=== PATIENT | male | born 1980 | race African-American/Black ===

== ENCOUNTER 2017-04-17 17:58 | Emergency (ER) | payer BC ==
[2017-04-17 18:12] VITALS: BP 143/87
[2017-04-17] MEDS ORDERED: Acetaminophen TAB* 325 MG PO ONE (18:17)
--- NOTE | 2017-04-17 18:51 | UC ---
Alma Dong Emily, scribed for Aidee Turner MD on 04/17/17 at 1849 . HPI Febrile Illness - HPI Summary HPI Summary: This patient is a 36 year old M presenting to urgent care with a chief complaint of a fever that began yesterday. The patient rates the pain 8/10 in severity Patient reports chills, myalgia, joint pain, nasal drainage, sore throat, cough, and frontal headache. Patient denies rash, dysuria, and hematuria. Pt has taken 2 doses of Motrin with improvement. 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 Patients medication reviewed this visit. - History of Current Complaint Chief Complaint: UCRespiratory Time Seen by Provider: 04/17/17 18:35 Hx Obtained From: Patient Onset/Duration: Started Days Ago, Still Present Timing: Constant Initial Severity: Severe Current Severity: Severe Pain Intensity: 8 Pain Scale Used: 0-10 Numeric Aggravating Factors: Nothing Alleviating Factors: Nothing Associated Signs and Symptoms: Chills, Headache, Myalgia, SOB, Sore Throat - Allergy/Home Medications Allergies/Adverse Reactions: Allergies Allergy/AdvReac Type Severity Reaction Status Date / Time No Known Allergies Allergy Verified 04/17/17 18:12 PMH/Surg Hx/FS Hx/Imm Hx Previously Healthy: Yes Other Respiratory History: Negative Other History Of: Negative For: HIV - Surgical History Surgical History: Yes Surgery Procedure, Year, and Place: Left foot - Family History Known Family History: Negative: Cardiac Disease, Diabetes - Social History Occupation: Employed Part-time Lives: Alone Alcohol Use: Occasionally Alcohol Amount: one beer a day Substance Use Type: None Smoking Status (MU): Light Every Day Tobacco Smoker Review of Systems Constitutional: Fever, Chills ENT: Sore Throat, Nasal Discharge Respiratory: Cough Genitourinary: Other - Negative dysuria and hematuria Motor: Negative, Other - myalgia, arthralgia Musculoskeletal: Myalgia, Other: - Positive LE pain Neurological: Headache - frontal All Other Systems Reviewed And Are Negative: Yes Physical Exam Triage Information Reviewed: Yes Appearance: Well-Appearing - A+Ox3 tired appearing Vital Signs: Initial Vital Signs Temp 100.1 F 04/17/17 18:10 Pulse 105 10/16/17 18:10 Resp 18 04/17/17 18:10 BP 143/87 04/17/17 18:10 Pulse Ox 97 04/17/17 18:10 Vital Signs Reviewed: Yes Eye Exam: Normal Eyes: Positive: Conjunctiva Clear. Negative: Discharge ENT: Positive: Normal ENT inspection, Hearing grossly normal, Pharynx normal, Nasal congestion, TMs normal Dental Exam: Normal Neck exam: Normal Neck: Positive: Supple, Nontender Respiratory Exam: Normal Respiratory: Positive: Chest non-tender, Lungs clear, Normal breath sounds, No respiratory distress Cardiovascular Exam: Normal Cardiovascular: Positive: RRR, No Murmur, Pulses Normal Abdominal Exam: Normal Abdomen Description: Positive: Nontender, No Organomegaly, Soft Bowel Sounds: Positive: Present Musculoskeletal Exam: Normal Musculoskeletal: Positive: Strength Intact, ROM Intact Neurological Exam: Normal Neurological: Positive: Alert, Muscle Tone Normal Psychological Exam: Normal Psychological: Positive: Normal Response To Family Skin Exam: Normal, Other - warm, no rash Course/Dx - Course Assessment/Plan: pt presents with 36 hours of body aches, fatigue, congestion, fever, with episodes of chills. Pt with temp improvement with antipyretic - last this am. + po today. will check flu and strep. wll give APAP. Pt taking po water. d/w pt and SO at length regarding likely viral syndrome, secretion precautions. return precautions. pt and so comfortable and in agreement with plan - Diagnoses Clinic Provider Diagnoses: fever. myalgia Discharge - Discharge Plan Condition: Stable Disposition: HOME Prescriptions: Fluticasone NASAL SPRAY 50MCG* [Flonase NASAL SPRAY 50MCG*] 2 spray BOTH NARES DAILY #1 btl Patient Education Materials: Viral Syndrome (ED) Referrals: Priscila Hudson MD [Primary Care Provider] - Additional Instructions: - stay well hydrated. Drink plenty of non-alcoholic, non-caffinated beverages - Okay to alternate ibuprofen (advil, motrin) and tylenol every 3hours for fever - get plenty of restful sleep - Use Nyquil and DAyquil for symptoms - use flonase as prescribed - These infections are spread by secretions - do NOT share eating or drinking utensils - clean items you share with other people such as cell phones, computer mouse, TV remote, computer tablets, etc. Once you start to feel better , change your toothbrush and your pillowcase. - contact your doctor or return with questions or concerns The documentation as recorded by the Alma de la cruz Emily accurately reflects the service I personally performed and the decisions made by me, Aidee Turner MD.
== END 2017-04-17 18:59 | disposition home or self-care (01) ==
LOC: UCEAST 17:58
DX: R50.9 Fever, unspecified (principal); M79.1 Myalgia; F17.200 Nicotine dependence, unspecified, uncomplicated
CPT/HCPCS: 87502; 87651; 99202; A9270-GY; G0463

== ENCOUNTER 2017-04-22 07:49 | Emergency (ER) | payer BC ==
--- NOTE | 2017-04-22 07:52 | UC ---
Respiratory Complaint HPI - HPI Summary HPI Summary: 37 YEAR OLD MALE PRESENTS WITH COMPLAINS OF SHORTNESS OF BREATH AND SORE THROAT. - History of Current Complaint Stated Complaint: SOB, ST Time Seen by Provider: 04/22/17 07:52 Hx Obtained From: Patient Onset/Duration: Sudden Onset Severity Initially: Moderate Severity Currently: Moderate Pain Scale Used: 0-10 Numeric - 5 - Allergies/Home Medications Allergies/Adverse Reactions: Allergies Allergy/AdvReac Type Severity Reaction Status Date / Time No Known Allergies Allergy Verified 04/22/17 08:10 PMH/Surg Hx/FS Hx/Imm Hx Previously Healthy: Yes Other History Of: Negative For: HIV - Surgical History Surgical History: Yes Surgery Procedure, Year, and Place: Left foot - Family History Known Family History: Negative: Cardiac Disease, Diabetes - Social History Alcohol Use: Occasionally Alcohol Amount: one beer a day Substance Use Type: None Smoking Status (MU): Light Every Day Tobacco Smoker Review of Systems Constitutional: Negative Skin: Negative Eyes: Negative ENT: Negative Respiratory: Shortness Of Breath, Cough Cardiovascular: Negative Gastrointestinal: Negative Genitourinary: Negative Motor: Negative Neurovascular: Negative Musculoskeletal: Negative Neurological: Negative Psychological: Negative Is Patient Immunocompromised?: Yes All Other Systems Reviewed And Are Negative: Yes Physical Exam Triage Information Reviewed: Yes Vital Signs Reviewed: Yes Eye Exam: Normal ENT Exam: Normal Dental Exam: Normal Neck exam: Normal Neck: Positive: 1 Respiratory Exam: Normal Cardiovascular Exam: Normal Abdominal Exam: Normal Musculoskeletal Exam: Normal Neurological Exam: Normal Psychological Exam: Normal Skin Exam: Normal UC Diagnostic Evaluation - Radiology Xray Interpretation: Positive (See Comments) - PNEUMONIA Radiology Interpretation Completed By: ED Physician, Radiologist Respiratory Course/Dx - Differential Dx/Diagnosis Provider Diagnoses: SHORTNESS OF BREATH. COUGH. PNEUMONIA Discharge - Discharge Plan Condition: Stable Disposition: HOME Prescriptions: Albuterol HFA INHALER* [Ventolin HFA Inhaler*] 1 puff INH Q6H PRN #1 mdi PRN Reason: Wheezing Levofloxacin TAB* [Levaquin TAB*] 750 mg PO DAILY #6 tab guaiFENesin/CODIEN 100MG-10MG* [Robitussin AC 100Mg-10Mg*] 5 ml PO Q6H PRN #120 ml MDD 20 ML PRN Reason: Cough predniSONE TAB* [Deltasone TAB*] 40 mg PO DAILY #8 tab Patient Education Materials: Pneumonia (ED) Forms: *Work Release Referrals: Priscila Hudson MD [Primary Care Provider] -
[2017-04-22] MEDS ORDERED: Acetaminophen TAB* 325 MG PO ONE (08:24)
[2017-04-22] MEDS ORDERED: predniSONE TAB* 20 MG PO ONE (08:28)
[2017-04-22] MEDS ORDERED: Lidocaine 2% VISCOUS* 15 ML UDC SWISH SPIT ONE (08:30)
--- NOTE | 2017-04-22 08:32 | RAD ---
INDICATION: Fevers, chills and difficulty breathing COMPARISON: None TECHNIQUE: PA and lateral views of the chest were obtained. FINDINGS: The heart and mediastinum are normal in size and contour. There is faint patchy infiltrate overlying the lateral right lung. There is no focal lobar consolidation. There is no evidence of large pleural effusion. Visualized bones are normal for the patient's age. There is no radiographic evidence of free air beneath the diaphragm IMPRESSION: PATCHY INFILTRATE OVERLYING THE RIGHT LUNG COULD REPRESENT PNEUMONIA IN THE CORRECT CLINICAL SETTING.
[2017-04-22] MEDS ORDERED: Levofloxacin TAB* 250 MG PO ONE (08:37)
[2017-04-22] MEDS ORDERED: Albuterol/Ipratropium NEB.SOL* Albuterol 2.5 MG/Ipratropium 0.5 MG 3 ML INH ONE (08:40)
[2017-04-22 09:32] VITALS: BP 189/102
== END 2017-04-22 09:32 | disposition home or self-care (01) ==
LOC: UCEAST 07:49
DX: J18.9 Pneumonia, unspecified organism (principal); F17.200 Nicotine dependence, unspecified, uncomplicated; R05 Cough; R06.02 Shortness of breath
CPT/HCPCS: 71020; 99213; A9270-GY; G0463; J7512

== ENCOUNTER 2017-04-22 09:41 | Inpatient (IN) | payer BC ==
[2017-04-22] MEDS ORDERED: LORazepam TAB(*) 1 MG PO ONE (10:08)
[2017-04-22] MEDS ORDERED: Aspirin Low Dose CHEW TAB* 81 MG PO ONE (10:44)
[2017-04-22] MEDS ORDERED: NS 0.9% 1000 ML* 1,000 ML IV ONE (10:44)
--- NOTE | 2017-04-22 10:48 | ED ---
Shortness of Breath - HPI Summary HPI Summary: 37 male presents to - History of Current Complaint Chief Complaint: EDGeneral Time Seen by Provider: 04/22/17 09:50 - Allergy/Home Medications Allergies/Adverse Reactions: Allergies Allergy/AdvReac Type Severity Reaction Status Date / Time Shellfish Allergy Allergy Swelling Verified 04/22/17 12:27 Of Face,Lips,& Throat Home Medications: Home Medications NK [No Home Medications Reported] 04/22/17 [History Confirmed 04/22/17] PMH/Surg Hx/FS Hx/Imm Hx Cardiovascular History: Reports: Hx Hypertension - does not take meds - Surgical History Surgery Procedure, Year, and Place: Left foot Infectious Disease History: No Infectious Disease History: Denies: Traveled Outside the in Last 30 Days - Family History Known Family History: Negative: Cardiac Disease, Diabetes - Social History Alcohol Use: Daily Alcohol Amount: 2-3 beers daily after work Substance Use Type: Reports: Marijuana Substance Use Comment - Amount & Last Used: occasionally Smoking Status (MU): Light Every Day Tobacco Smoker Type: Cigarettes Amount Used/How Often: 3-4 cigs per day Physical Exam Vital Signs On Initial Exam: Initial Vitals Temp Pulse Resp BP Pulse Ox 98.7 F 73 20 147/89 99 04/22/17 09:42 04/22/17 09:42 04/22/17 09:42 04/22/17 09:42 04/22/17 09:42 - [place] Coma Scale Coma Scale Total: 15 Diagnostics - Vital Signs Vital Signs Temp Pulse Resp BP Pulse Ox 04/22/17 10:12 26 04/22/17 10:00 152 29 153/85 99 04/22/17 09:56 150 23 99 04/22/17 09:42 98.7 F 73 20 147/89 99 - Laboratory Result Diagrams: 04/22/17 10:45 04/22/17 10:45 Lab Statement: Any lab studies that have been ordered have been reviewed, and results considered in the medical decision making process. - EKG EKG Cardiac Rate: Tachycardia EKG Rhythm: Sinus Tachycardia ST Segment: Non-Specific EKG Interpretation: sinus tachycardia, no STEMI EKG Comparison: No Significant Change Discharge - Discharge Plan Condition: Fair Disposition: ADMITTED TO [facility]
[2017-04-22] MEDS ORDERED: NS 0.9% 1000 ML* 3,000 ML IV ONE (10:55)
[2017-04-22] MEDS ORDERED: Acetaminophen TAB* 325 MG PO ONE (10:56)
[2017-04-22] MEDS ORDERED: Cefepime(*) 2 GM in NS 0.9% 50 ML* 50 ML IVPB ONE (10:56)
[2017-04-22 11:05] LABS: Hematocrit 41 % (42-52); Hemoglobin 14.4 g/dl (14.0-18.0); Mean Corpuscular HGB Conc 35 g/dl (31-36); Mean Corpuscular Hemoglobin 30 pg (27-31); Mean Corpuscular Volume 85 fL (80-94); Mean Platelet Volume 9 um3 (7.4-10.4); Red Blood Count 4.85 10^6/ul (4.0-5.4); Red Cell Distribution Width 14 % (10.5-15); White Blood Count 10.6 10^3/ul (3.5-10.8)
[2017-04-22] MEDS ORDERED: Piperacillin/Tazobac (*) 3.375 GM ADDV.VIAL ONE (11:08)
[2017-04-22] MEDS ORDERED: NS 0.9% 50 ML* 50 ML ONE (11:09)
[2017-04-22 11:12] LABS: Albumin 3.7 g/dL (3.2-5.2); BUN/Creatinine Ratio 8.9 (8-20); Calcium 9.5 mg/dL (8.6-10.3); EGFR African American 106.3 (>60); EGFR Non-African American 82.7 (>60); Globulin 4.1 g/dL (2-4); Magnesium 1.8 mg/dL (1.9-2.7); Potassium 3.1 mmol/L (3.5-5.0); Total Bilirubin 1.8 mg/dL (0.2-1.0); Total Protein 7.8 g/dL (6.4-8.9)
[2017-04-22 11:15] LABS: Troponin I 0.02 ng/mL (<0.04)
[2017-04-22 12:02] LABS: TSH (Thyroid Stimulating Horm) 1.51 mcIU/mL (0.34-5.60)
[2017-04-22] MEDS ORDERED: Iohexol 350* (CONTRAST) 500 ML MDV IV ONE (12:06)
[2017-04-22 12:09] LABS: PCO2 Arterial 25 mmHg (35-45)
[2017-04-22 12:25] LABS: Urine Bilirubin Negative (Negative); Urine Glucose Negative (Negative); Urine Nitrite Negative (Negative)
[2017-04-22] MEDS ORDERED: Potassium Chlor TAB* 20 MEQ TAB.ER PO ONE (12:48)
[2017-04-22] MEDS: Enoxaparin(*) 100 MG/ML SYR SUBCUT SCH (12:49)
[2017-04-22] MEDS ORDERED: Azithromycin IV* 500 MG ADVAN VIAL IVPB ONE (12:55)
[2017-04-22] MEDS ORDERED: Levofloxacin 750 MG IVPREMIX(* 750 MG/150 ML BAG IVPB SCH (13:00)
[2017-04-22] MEDS ORDERED: cefTRIAXone VIAL(*) 1,000 MG in NS 0.9% 50 ML* 50 ML IVPB SCH (13:00)
[2017-04-22] MEDS ORDERED: Azithromycin IV(*) 500 MG in NS 0.9% 250 ML* 250 ML IVPB SCH (13:00)
[2017-04-22 13:28] LABS: C Reactive Protein 264.74 mg/L (< 5.00)
[2017-04-22] MEDS: predniSONE TAB* 50 MG PO SCH ×2 (13:51→19:28)
[2017-04-22] MEDS: NS 0.9% 1000 ML* 1,000 ML IV SCH ×2 (13:52→21:28)
--- NOTE | 2017-04-22 15:11 | RAD ---
HISTORY: Bilateral leg pain TECHNIQUE: Multiple transverse and longitudinal ultrasound images were obtained of the veins of the bilateral lower extremities using grayscale, color Doppler, and spectral Doppler imaging with and without compression and with augmentation. FINDINGS: VEINS: The common femoral vein, deep femoral vein, femoral vein and popliteal vein are compressible throughout their course, with normal flow on color Doppler imaging and normal response to augmentation on spectral Doppler imaging. SOFT TISSUES: Grossly normal. IMPRESSION: No sonographic evidence of deep vein thrombosis.
--- NOTE | 2017-04-22 15:20 | HP ---
CC: Dr. Hudson* [facility] MEDICINE HISTORY AND PHYSICAL: DATE OF ADMISSION: 04/22/17 PRIMARY CARE PHYSICIAN: Dr. Hudson. ATTENDING PHYSICIAN: Dr. Priya Avitia* (dictation provided by Hellen Lima NP) CHIEF COMPLAINT: Rigors, fever, and chest tightness. HISTORY OF PRESENT ILLNESS: Mr. Knott is a 37-year-old male with past medical history only of suspected hypertension, not on outpatient medications, who presents today to the hospital from [facility] with feeling unwell for the past week. Mr. Knott states that on Monday at about 4:30, he developed chills, he stayed in bed, he had a fever as high as 101. His fever improved later that day, but Monday, he was still feeling unwell with complaint at that point of sore throat and rigors. He was seen at [facility] and per the patient' s significant other, a strep and flu swab were both negative. It was suspected that perhaps he had a viral process and he was sent home with supportive care. He reportedly vomited and had diarrhea that night, but has had none since. On Monday, he continued to complain of pain in his ear and sore throat. He also had chills, no fever. On Monday, he had similar symptoms, but he was able to get up and go to the grocery store and walk around outside a bit with his girlfriend. , he began to complain of chest fullness. At that point, his ear felt better after the instillation of homeopathic ear drops and use of neti pot. On Monday, he took a warm bath in Epsom salts and still was complaining of a chest tightness. There was no report of cough at that point or throughout any of his illness. At 8:30 that night, he again developed chills and by 6:30 a.m. this morning, Monday, the patient was feeling unwell again and went to [facility] for evaluation. While there, he had a chest x - ray, which did not show any significant infiltrate. He was given a breathing treatment after being given prednisone and Levaquin. He vomited both of this medication up and therfore came to the emergency room for evaluation due to inability to tolerate medication. At this point, Mr. Knott states that his main complaint is feeling generally tired with malaise as well as intermittent right-sided sharp chest pains. He is significantly tachycardic with a heart rate running as high as 140s for the past 2- 1/2 hours despite administration of IV fluids. He feels very anxious and he and his girlfriend confirmed that he is a bit "foggy" in terms of his mentation. Workup thus far shows that the patient has no leukocytosis or bandemia. He is febrile to a temp of 102. His chest x-ray is read as possibly showing mild right- sided infiltrate, but it is not significant at all. He did have an ABG drawn, which showed metabolic alkalosis consistent with hyperventilation. He had elevated D-dimer to 902; however, he does have a SEAFOOD allergy and is unable to go directly for CTA chest. PAST MEDICAL HISTORY: Hypertension. MEDICATIONS: The patient was prescribed prednisone and Levaquin at the [facility] today, but he has not taken that medication as he vomited. He takes no routine medications at home. ALLERGIES: To SHELLFISH. FAMILY HISTORY: Mom has history of heart murmur. Dad has a history of hypertension and stroke. Multiple family members have hypertension. SOCIAL HISTORY: The patient is a smoker. He smokes about 5 to 7 cigarettes a day. He drinks about 2 beers per night, but has not drank all week due to feeling poorly. No report of drug use. His healthcare proxy is Brandy Gray, who is his significant other. REVIEW OF SYSTEMS: A 14-point review of systems was completed and all those not mentioned above were negative. PHYSICAL EXAMINATION GENERAL: Mr. Knott is lying in bed. He appears mildly short of breath at rest. VITAL SIGNS: Temperature 102.1, heart rate 159, respiratory rate 20, O2 saturation 99% on room air, and blood pressure 150/85. LUNGS: Clear to auscultation bilaterally with no accessory muscle use and good aeration. HEART: S1, S2. No murmur, rub, or gallop and regular. ABDOMEN: Soft, nontender with bowel sounds positive x4. EXTREMITIES: No cyanosis or edema. NEURO: He is alert. He is oriented x3. He seems to have a little bit of slowing in his mentation and he and his significant other do report that he seems a bit foggier than usual. He moves all extremities equally. There is no facial asymmetry or focal weakness. Extraocular movements are intact. SKIN: Intact. DIAGNOSTIC STUDIES/LAB DATA: WBC 10.6, hemoglobin 14.4, hematocrit 41, and platelet count 197. D-dimer 902. Blood gas shows a pH of 7.53, PCO2 25, PO2 88 , bicarbonate 24.6. Sodium 132, potassium 3.1, chloride 98, serum bicarbonate 18, anion gap 16, BUN 9, creatinine 1.01, glucose 116, lactic acid 1.8, magnesium 1.8. Total bilirubin 1.8, alk phos 142. BNP 165. Troponin 0.02. Urine shows no evidence of infection. Chest x-ray shows possibility of a very small right-sided infiltrate. ASSESSMENT AND PLAN: Mr. Knott is a 37-year-old male with past medical history of suspected hypertension, who presents to the hospital today with concern for rigors, chills, fever for 1 week now with chest tightness and right- sided chest pain with persistent fever. Our plans are for inpatient admission for the followin. Fever with rigors. I suspect that perhaps the patient has component of pneumonia. He could have a viral process. He has no leukocytosis or bandemia. His chest x-ray is not impressive for infiltrate. It could be that he is dehydrated and that this infiltrate will become more apparent as we continue to hydrate the patient or he may have an atypical pneumonia. I have added on urine strep and urine legionella antigens to this end. He will be covered for community- acquired pneumonia including atypicals with ceftriaxone and azithromycin. He has no other source of infection. He currently denies any sore throat or ear pain. He has no evidence of a urinary tract infection. Blood cultures have been drawn and lactic acid is normal. 2. Supraventricular tachycardia. The patient's heart rate has remained almost 150 throughout this time in the emergency room today. The patient also reports being fairly immobile all week and did describe some bilateral lower extremity pain. I am concerned for a pulmonary embolism and therefore I have ordered a CTA chest. Unfortunately, the patient has a SEAFOOD allergy and will need premedication with prednisone and Benadryl before going for that testing later on this evening. In the meantime, based on the elevated D-dimer and my high suspicion, I do plan to treat with Lovenox full dose b.i.d. until pulmonary embolism can be ruled out. I have also ordered a bilateral lower extremity Doppler. 3. Hypertension. The patient's blood pressure is in the 150s. We could consider adding on a blood pressure medication at the time of discharge if he remains hypertensive. 4. Code status is full code. 5. Disposition to telemetry floor. TIME SPENT: Approximately 75 minutes was spent on the admission of this patient , more than half the time was spent with the patient at the bedside reviewing the events leading up to this hospitalization with him and his significant other , performing the physical examination, and reviewing my plan of care. HELLEN LIMA NP ADDENDUM TO HISTORY AND PHYSICAL: Mr. Knott is a 37-year-old male with history of fevers for the past 7 days or so. He presents to the hospital with tachycardia with a heart rate of 150. He has not been having good appetite for the past week and a half or so. He has some right lung infiltrate on his x-ray. He appears markedly dehydrated and has elevated C-reactive protein over 260. He is also hypokalemic and hyponatremic due to dehydration. He is going to be admitted with a diagnosis of pneumonia. We will also empirically anticoagulate him in case he has a pulmonary embolism and a CT is going to be obtained tomorrow after prednisone preparation due to that the patient has history of SHELLFISH allergy. For further details of the patient's presentation and plan, please see history and physical dictated by Hellen Lima NP, on 04/22/17, with which I agree. Priya Avitia MD [id number]/[facility] #: [id number]/CPS #: [id number] [place]
[2017-04-22] MEDS ORDERED: Metoprolol Tartrate TAB* 25 MG PO ONE (18:40)
--- NOTE | 2017-04-22 19:09 | HP ---
HISTORY AND PHYSICAL: ADDENDUM: Mr. Knott is a 37-year-old male with history of fevers for the past 7 days or so. He p resents to the hospital with tachycardia with a heart rate of 150. He has not been having good appet ite for the past week and a half or so. He has some right lung infiltrate on his x-ray. He appears markedly dehydrated and has elevated C-reactive protein over 260. He is also hypokalemic and hypon atremic due to dehydration. He is going to be admitted with a diagnosis of pneumonia. We will also empirically anticoagulate him in case he has a pulmonary embolism and a CT is going to be obtained tomorrow after prednisone preparation due to that the patient has history of SHELLFISH allergy. For further details of the patient's presentation and plan, please see history and physical dictated by Hellen Lima NP, on 04/22/17, with which I agree. [id number]/[facility] #: [id number]
[2017-04-23] MEDS ORDERED: diPHENhydraMINE PO* 50 MG PO SCH (01:00)
[2017-04-23] MEDS: predniSONE TAB* 50 MG PO SCH (01:12)
[2017-04-23] MEDS: Enoxaparin(*) 100 MG/ML SYR SUBCUT SCH (01:13)
[2017-04-23] MEDS ORDERED: Iohexol 350* (CONTRAST) 500 ML MDV IV ONE (02:39)
[2017-04-23] MEDS: NS 0.9% 1000 ML* 1,000 ML IV SCH ×4 (04:53→18:03)
[2017-04-23 05:26] LABS: Hematocrit 35 % (42-52); Hemoglobin 11.5 g/dl (14.0-18.0); Mean Corpuscular HGB Conc 33 g/dl (31-36); Mean Corpuscular Hemoglobin 29 pg (27-31); Mean Corpuscular Volume 87 fL (80-94); Mean Platelet Volume 8 um3 (7.4-10.4); Red Blood Count 4.02 10^6/ul (4.0-5.4); Red Cell Distribution Width 14 % (10.5-15); White Blood Count 15.3 10^3/ul (3.5-10.8)
[2017-04-23 05:49] LABS: BUN/Creatinine Ratio 12.3 (8-20); Calcium 8.7 mg/dL (8.6-10.3); EGFR African American 137.2 (>60); EGFR Non-African American 106.6 (>60); Potassium 3.8 mmol/L (3.5-5.0)
--- NOTE | 2017-04-23 08:32 | ED ---
I, Theodore Man, scribed for Kt Wilkins MD on 04/22/17 at 1103 . Progress - Progress Note Progress Note: This patient is a 37 year old M presenting to ED with a chief complaint of chills and diaphoresis since 6 days ago at 1630. The patient rates the pain 4/ 10 in severity. Symptoms aggravated by nothing. Symptoms alleviated by nothing. Patient reports rigorous chills, cold sweats, diaphoresis, vomiting, tachycardic , ear ache, sore throat (3-4 days ago), and CP (2 days ago). Patient denies cough. The pt was seen at [facility] 5 days ago (flu and strep throat was negative). Pt was also seen this morning at [facility] where a CXR was done and suggested PNA. Pt has been taking Ibuprofen Tylenol, Theraflu, and Nyquil. On the physical exam, pt was diaphoretic, tachycardic, and ill appearing. The pt s lungs were clear to auscultation bilaterally. Pts HR is at 147 bpm. We recommend for the pt to get fluids (3L), Lorazepam ( 1mg), Cefepime (through IV, 50 mL), and Advan (3.375 g through IV), and an antiseptic workup. Pt was seen at [facility] where a CXR was done that suggested PNA. At this time the pt is more stable. The pts care will continue with Linh Flores. I recommend the pt to be admitted to hospitalist services. Course/Dx - Diagnoses Provider Diagnoses: Sepsis, Pneumonia The documentation as recorded by the Donovan de la cruz Nikita accurately reflects the service I personally performed and the decisions made by me, Kt Wilkins MD.
[2017-04-23 08:53] LABS: C Reactive Protein 229.3 mg/L (< 5.00); Magnesium 2.2 mg/dL (1.9-2.7)
--- NOTE | 2017-04-23 09:04 | RAD ---
INDICATION: Shortness of breath. Elevated d-dimer. Pneumonia. COMPARISON: April 22, 2017 chest radiograph. TECHNIQUE: Multidetector CT images were obtained from the lung apices to the upper abdomen with 80 mL Omnipaque 350 IV contrast. Pulmonary angiogram protocol. Multiplanar reformation including with maximum intensity projection. REPORT: Multiple bilateral focal pulmonary opacities with a few demonstrating early central cavitation. Negative for pleural effusion or pneumothorax. Mildly enlarged 1.4 cm short axis subcarinal lymph node. Top normal heart size. Negative for pericardial effusion. Unremarkable thoracic aorta. Small burden of acute pulmonary emboli visualized at the subsegmental pulmonary arteries of the apical segment of the RIGHT upper lobe. Unremarkable Limited images through the upper abdomen. Negative for suspicious thoracic osseous lesions. IMPRESSION: Small burden of acute pulmonary emboli at the subsegmental pulmonary arteries of the apical segment of the RIGHT upper lobe. The constellation of multiple round pulmonary opacities with some demonstrating early central cavitation is most consistent with septic embolic disease. Interval progression of pulmonary infiltrates compared with the April 22, 2017 chest radiograph. Results discussed with Dr. Avitia 04/23/2017 8:57 AM EDT
[2017-04-23] MEDS ORDERED: Vancomycin(*) 1,500 MG in NS 0.9% 250 ML* 250 ML IVPB ONE (09:18)
[2017-04-23 09:37] LABS: Erythrocyte Sed Rate 105 mm/Hr (0-14)
[2017-04-23] MEDS ORDERED: Vancomycin per Pharmacy* NOTE FOLLOW UP PRN (10:52)
[2017-04-23] MEDS ORDERED: Zosyn 3.375 gm X 1 dose, then dose per Pharmacy IVPB ONE ×2 (11:00)
[2017-04-23 11:33] LABS: Troponin I 0.15 ng/mL (<0.04)
[2017-04-23] MEDS ORDERED: Aspirin EC Low Dose* 81 MG TAB.EC PO ONE (11:44)
[2017-04-23] MEDS ORDERED: Morphine INJ* 2 MG/ML 1 ML SYRINGE (TWO MG - NEW SYRINGE VERSION) IV ONE (11:45)
[2017-04-23] MEDS ORDERED: Morphine INJ* 2 MG/ML 1 ML SYRINGE (TWO MG - NEW SYRINGE VERSION) IV PRN (11:57)
[2017-04-23] MEDS: oxyCODONE/Acetamin 5/325 MG* TAB PO PRN (12:57)
[2017-04-23] MEDS ORDERED: Azithromycin IV(*) 500 MG in NS 0.9% 250 ML* 250 ML IVPB SCH (13:00)
--- NOTE | 2017-04-23 13:35 | ECHO ---
Patient: CHANDLER MOON [facility] Rec#: [id number] : 1980 Date: 04/23/2017 Age: 37y Height: 182.88 cm / 72.0 in Weight: 96.16 kg / 211.9 lbs Sex: M BSA: 2.18 Room#: 431 Admit Date#: 04/22/2017 Type: Inpatient Referring: Negrita Roldan Reading: Jessie Porter MD [employer] Operator: Kenzie Church RDCS CC: Priscila Bonilla MD Transthoracic Echocardiogram Indication: Septic pulmonary emboli BP: 145/87 HR: 82 Rhythm: NSR Findings History: HTN, recent pneumonia. Technical Comments: The study quality is good. Completed at 1215. Left Ventricle: The left ventricular size is mild to moderately dilated. The left ventricle appears hyperdynamic. The estimated ejection fraction is 60-65%. There is no consistent Doppler evidence of clinically significant diastolic dysfunction. The patient was unable to perform a Valsalva maneuver. Left Atrium: The left atrium is mildly dilated. Right Ventricle: The right ventricular cavity size is normal. The right ventricular global systolic function is normal. Right Atrium: The right atrium is mildly dilated. Aortic Valve: The aortic valve is trileaflet. The aortic valve leaflets are mildly thickened. There is no evidence of aortic regurgitation. There is no evidence of aortic stenosis. Mitral Valve: The mitral valve leaflets are mildly thickened. There is trace to mild mitral regurgitation. There is no evidence of mitral stenosis. Tricuspid Valve: The tricuspid valve leaflets are normal. There is trace to mild tricuspid regurgitation. The right ventricular systolic pressure is estimated at 32 mmHg. There is evidence that pulmonary hypertension may be underestimated. There is no tricuspid stenosis. Pulmonic Valve: The pulmonic valve appears normal in structure and function. There is a trace pulmonic regurgitation. Pericardium: There is no significant pericardial effusion. Aorta: There is no dilatation of the ascending aorta. There is no dilatation of the aortic arch. The aortic root is normal in size. Pulmonary Artery: The main pulmonary artery appears normal. Venous: The inferior vena cava appears normal in size. There is a greater than 50% respiratory change in the inferior vena cava dimension. Conclusions The left ventricular size is mild to moderately dilated. The left ventricle appears hyperdynamic. The estimated ejection fraction is 60-65%. The right ventricular global systolic function is normal. All valves appear structurally normal, no vegetations noted. There is trace to mild mitral regurgitation. There is trace to mild tricuspid regurgitation. There is no significant pericardial effusion. The right ventricular systolic pressure is estimated at 32 mmHg. No prior echos available to compare. Measurements Name Value Normal Range RVIDd (AP) 2D 3.9 cm (0.9 - 2.6) RVDdMajor (2D) 4 cm (2.2 - 4.4) RAd ISD 4CH 5.6 cm (3.4 - 4.9) RA (A4C)W 4.1 cm (2.9 - 4.6) IVSd (2D) 0.8 cm (0.6 - 1) LVPWd (2D) 0.7 cm (0.6 - 1) LVIDd (2D) 6.3 cm (3.6 - 5.4) LVIDs (2D) 4.5 cm - LV FS (2D) 28 % (25 - 45) Aortic Annulus 2.2 cm (1.4 - 2.6) Ao root diameter (2D) 3.5 cm (2.1 - 3.5) Ascending Ao 3.4 cm (2.1 - 3.4) Aortic arch 2.6 cm (1.8 - 3.4) LA dimension (AP) 2D 3.8 cm (2.3 - 3.8) LAd ISD 4CH 5.4 cm (2.9 - 5.3) LA ISD 4CH W 4.9 cm (2.5 - 4.5) Name Value Normal Range LA ESV SP 4CH (A/L) 72 ml - LA ESV SP 2CH (A/L) 68 ml - LA ESV BP (A/L) 76 ml - LA ESV BP (A/L) index 35 ml/m2 - LA ESV SP 4CH (MOD) 67 ml - LA ESV SP 2CH (MOD) 63 ml - Name Value Normal Range MV E-wave Vmax 1.36 m/sec - MV deceleration time 223.3 msec - MV A-wave Vmax 1.32 m/sec - MV E:A ratio 1.03 ratio - LV septal e' Vmax 0.08 m/sec - LV lateral e' Vmax 0.11 m/sec - LV E:e' septal ratio 17 ratio - LV E:e' lateral ratio 12.36 ratio - Name Value Normal Range AV Vmax 1.91 m/sec - AV VTI 38.22 cm - AV peak gradient 14.65 mmHg - AV mean gradient 7.96 mmHg - LVOT Vmax 1.47 m/sec - LVOT VTI 28.79 cm - LVOT peak gradient 8.71 mmHg - LVOT mean gradient 4.55 mmHg - SINDY Vmax 1.42 m/sec - Name Value Normal Range TR Vmax 2.7 m/sec - TR peak gradient 29 mmHg - RAP 3 mmHg - RVSP 32 mmHg - IVC diameter 2 cm - Name Value Normal Range PV Vmax 0.9 m/sec - PV peak gradient 3.37 mmHg - SC end-diastolic Vmax 1.14 m/sec -
[2017-04-23] MEDS: Vancomycin(*) 1,000 MG in NS 0.9% 250 ML* 250 ML IVPB SCH (17:55)
--- NOTE | 2017-04-23 18:09 | PN ---
Subjective Date of Service: 04/23/17 Interval History: Pt seen and evaluated at the bedside at 0900. Patient reports he feels much better today compared to the last week. He denies further fever/chills. He reports right upper chest wall pain that waxes and wanes, described as sharp, it does not radiate. He denies SOB. Reports no appetite over the past week, eating very little, today he feels like it appetite is a little better. Discussed at length his diagnosis. He is denies IV drug use, He reports marijuana use every once in awhile. He denies poor dentition. He states he is in good health rarely getting sick. 1145: acute episode c/o of worsening chest pain, he appeared to be in mild distress reporting "a lot of discomfort in his R upper chest wall. denied sob. morphine given with some relief. EKG and trop checked which were unremarkable. 1800: Pt resting comfortable, feeling better. continues to have some mild discomfort in R upper chest wall Objective Active Medications: Piperacillin Sod/Tazobactam (Sod 3.375 gm/ Sodium Chloride) 100 mls @ 25 mls/ hr IVPB Q8H [facility] Last Admin: 04/23/17 14:29 Dose: 25 mls/hr Sodium Chloride (Ns 0.9% 1000 Ml*) 1,000 mls @ 125 mls/hr IV PER RATE [facility] Last Admin: 04/23/17 18:03 Dose: 125 mls/hr Vancomycin HCl 1,000 mg/ (Sodium Chloride) 250 mls @ 166.667 mls/hr IVPB Q6H [facility] Last Admin: 04/23/17 17:55 Dose: 166.667 mls/hr Morphine Sulfate (Morphine Inj (Syringe)*) 2 mg IV Q2H PRN PRN Reason: PAIN Oxycodone/Acetaminophen (Percocet 5/325 Tab*) 1 tab PO Q4H PRN PRN Reason: PAIN Last Admin: 04/23/17 12:57 Dose: 1 tab Pharmacy Consult (Vancomycin Per Pharmacy*) 1 note FOLLOW UP . PRN PRN Reason: PER PROTOCOL Pharmacy Profile Note (Vancomycin Trough Check) 1 note FOLLOW UP 1230 ONE Stop: 04/24/17 12:31 Vital Signs 04/22/17 04/22/17 04/22/17 20:00 20:24 23:33 Temperature 98.1 F 97.8 F Pulse Rate 83 76 Respiratory 16 14 16 Rate Blood Pressure 142/98 143/80 (mmHg) O2 Sat by Pulse 99 99 Oximetry 04/23/17 04/23/17 04/23/17 01:12 02:56 03:24 Temperature 97.8 F Pulse Rate 74 Respiratory 20 16 16 Rate Blood Pressure 146/80 (mmHg) O2 Sat by Pulse 98 Oximetry 04/23/17 04/23/17 04/23/17 07:25 08:00 08:35 Temperature 99.1 F Pulse Rate 79 Respiratory 16 20 Rate Blood Pressure 145/87 (mmHg) O2 Sat by Pulse 98 99 Oximetry 04/23/17 04/23/17 04/23/17 11:41 11:51 12:51 Temperature 98.7 F Pulse Rate 84 Respiratory 16 20 20 Rate Blood Pressure 151/95 (mmHg) O2 Sat by Pulse 96 Oximetry 04/23/17 04/23/17 04/23/17 12:57 14:32 15:19 Temperature 98.3 F Pulse Rate 78 Respiratory 20 20 28 Rate Blood Pressure 139/81 (mmHg) O2 Sat by Pulse 100 Oximetry Oxygen Devices in Use Now: None Appearance: well developed 37 yo male sitting up in bed in NAD. A+O x3 Eyes: No Scleral Icterus, PERRLA Ears/Nose/Mouth/Throat: NL Teeth, Lips, Gums, Mucous Membranes Moist Neck: NL Appearance and Movements; NL JVP Respiratory: Symmetrical Chest Expansion and Respiratory Effort, Clear to Auscultation Cardiovascular: NL Sounds; No Murmurs; No JVD, RRR, No Edema Abdominal: NL Sounds; No Tenderness; No Distention Extremities: No Edema, No Clubbing, Cyanosis Skin: No Rash or Ulcers, No Nodules or Sclerosis Neurological: Alert and Oriented x 3, NL Sensation, NL Gait, NL Muscle Strength and Tone Lines/Tubes/Other Access: Clean, Dry and Intact Peripheral IV Nutrition: Taking PO's Result Diagrams: 04/23/17 04:44 04/23/17 04:44 Microbiology and Other Data: Microbiology 04/23/17 13:05 Influenza Types A,B Antigen (TREY) - Final Nasal Specimen received for Influenza A/B Molecular testing 04/22/17 13:10 Legionella Urinary Antigen - Final Urine Negative Legionella Streptococcus pneumoniae Ag Screen - Final Negative S. pneumo Antigen Assess/Plan/Problems-Billing Assessment: 37 yo male with no significant PMH presents to the ER on 04/22 with c/o one week of chills (rigors), fever, and chest tightness presenting with fever and SVT HR 150's, found to have a septic emboli - Patient Problems (1) Septic embolism Comment: clinically improving. unclear etiology. Pt denies IV drug use or poor dentition. CTA showing: small burden of acute pulm emboli of right upper lobe, most consistent with septic embolic disease. Fever 102 on admission, afebrile today CRP 229, ESR 105, Leukocytes 15 Continue Vanco/Zosyn Blood cx negative no growth day 1 TTE pending. Send HIV, HbgA1C ID consult (2) Hypertension Comment: possible undx HTN. trend noted to be 140-150 but patient was very stressed today , last BP 130's. Continue to monitor and start agent if consistently high. (3) Full code status (4) DVT prophylaxis Comment: Heparin SQ Status and Disposition: inpatient with septic emboli. LOS > 2 days. Home when stable.
[2017-04-23] MEDS ORDERED: HYDROmorphone INJ* 2 MG/ML CARPUJECT SYRINGE IV ONE (23:00)
[2017-04-23] MEDS: Heparin VIAL(*) 5000 UNITS/ML VIAL (FIVE THOUSAND) SUBCUT SCH (23:04)
[2017-04-24] MEDS: Vancomycin(*) 1,000 MG in NS 0.9% 250 ML* 250 ML IVPB SCH ×4 (00:30→20:01)
[2017-04-24 05:32] LABS: Hematocrit 34 % (42-52); Hemoglobin 11.3 g/dl (14.0-18.0); Mean Corpuscular HGB Conc 34 g/dl (31-36); Mean Corpuscular Hemoglobin 29 pg (27-31); Mean Corpuscular Volume 86 fL (80-94); Mean Platelet Volume 8 um3 (7.4-10.4); Red Blood Count 3.91 10^6/ul (4.0-5.4); Red Cell Distribution Width 14 % (10.5-15); White Blood Count 13.3 10^3/ul (3.5-10.8)
[2017-04-24] MEDS: LORazepam INJ* 2 MG/ML 1 ML VIAL IV PUSH PRN ×2 (05:45→13:18)
[2017-04-24 05:53] LABS: BUN/Creatinine Ratio 9.8 (8-20); C Reactive Protein 128.59 mg/L (< 5.00); Calcium 8.3 mg/dL (8.6-10.3); EGFR African American 118.4 (>60); EGFR Non-African American 92.1 (>60); Potassium 3.3 mmol/L (3.5-5.0)
[2017-04-24] MEDS: Heparin VIAL(*) 5000 UNITS/ML VIAL (FIVE THOUSAND) SUBCUT SCH ×3 (05:54→22:25)
[2017-04-24] MEDS: Acetaminophen TAB* 325 MG PO PRN ×2 (06:19→22:24)
[2017-04-24] MEDS ORDERED: Vancomycin Trough Check NOTE FOLLOW UP ONE (12:30)
--- NOTE | 2017-04-24 13:18 | PN ---
Subjective Date of Service: 04/24/17 Interval History: Patient seen and examined at bedside. Patient having some hallucinations this morning. Given Dilaudid last night for severe pain and IV Ativan this morning. Abiola says he has some baseline anxiety and has "a few beers" once in awhile for this. She also states he is having PTSD. Pain was uncontrolled last night prompting the Dilaudid. Patient has not taken Percocet that regularly. HR more controlled. Family History: Unchanged from Admission Social History: Unchanged from Admission Past Medical History: Unchanged from Admission Objective Active Medications: Acetaminophen (Tylenol Tab*) 650 mg PO Q6H PRN Heparin Sodium (Porcine) (Heparin Vial(*)) 5,000 units SUBCUT Q8HR [facility] Piperacillin Sod/Tazobactam (Sod 3.375 gm/ Sodium Chloride) 100 mls @ 25 mls/ hr IVPB Q8H [facility] Vancomycin HCl 1,000 mg/ (Sodium Chloride) 250 mls @ 166.667 mls/hr IVPB Q6H [facility] Lorazepam (Ativan Inj*) 1 mg IV PUSH Q4H PRN Morphine Sulfate (Morphine Inj (Syringe)*) 2 mg IV Q2H PRN Oxycodone/Acetaminophen (Percocet 5/325 Tab*) 1 tab PO Q4H PRN Pharmacy Consult (Vancomycin Per Pharmacy*) 1 note FOLLOW UP . PRN 04/24/17 11:10 Temperature 100.1 F Pulse Rate 77 Respiratory 28 Rate Blood Pressure 147/78 (mmHg) O2 Sat by Pulse 92 Oximetry Oxygen Devices in Use Now: Nasal Cannula Appearance: laying in bed, NAD Eyes: No Scleral Icterus, PERRLA Ears/Nose/Mouth/Throat: NL Teeth, Lips, Gums Neck: NL Appearance and Movements; NL JVP Respiratory: Symmetrical Chest Expansion and Respiratory Effort, Clear to Auscultation Cardiovascular: NL Sounds; No Murmurs; No JVD, RRR Abdominal: NL Sounds; No Tenderness; No Distention Skin: No Rash or Ulcers Neurological: Alert and Oriented x 3, NL Muscle Strength and Tone Lines/Tubes/Other Access: Clean, Dry and Intact Peripheral IV Result Diagrams: 04/24/17 05:07 04/24/17 05:07 Assess/Plan/Problems-Billing Assessment: 37 yo male with no significant PMH presents to the ER on 10/21 with c/o one week of chills (rigors), fever, and chest tightness presenting with fever and SVT HR 150's, found to have a septic emboli - Patient Problems (1) Septic embolism Comment: Etiology unclear. CTA shows small burden of acute pulm emboli of right upper lobe, most consistent with septic embolic disease. Low grade temp overnight and WBCs down. Continue Vanco/Zosyn. Blood cx negative no growth day 2. Appreciate ID input. HIV pending, will send ANCA, plan for RAMIREZ tomorrow. TTE showed normal EF and no evidence of vegetation. Pain control with PO Percocet. (2) Hypertension Comment: SBP still in the 140s. Will continue to monitor as pain has not been well controlled. (3) DVT prophylaxis Comment: Heparin SQ (4) Full code status Status and Disposition: inpatient with septic emboli. LOS > 2 days. Home when stable.
[2017-04-24] MEDS ORDERED: Potassium Chlor TAB* 20 MEQ TAB.ER PO ONE (13:23)
[2017-04-24] MEDS ORDERED: LORazepam TAB(*) 0.5 MG PO PRN (13:27)
[2017-04-24] MEDS ORDERED: oxyCODONE/Acetamin 5/325 MG* TAB PO PRN (13:27)
--- NOTE | 2017-04-24 21:47 | CONS ---
CONSULTATION REPORT: DATE OF CONSULT: 04/24/17 REQUESTING PROVIDER: Lizet Mcnally NP CONSULTING SERVICE: Infectious Disease. REASON FOR CONSULT: Multiple pulmonary nodules. IMPRESSION: 1. Two-week febrile illness with myalgia, malaise, anorexia weight loss, some pleuritic-type chest pain. The CT scan of the chest shows bilateral peripheral nodules and infiltrates, which is suggestive of septic pulmonary emboli, there is an acute pulmonary emboli as well. His blood cultures are negative; however , which is unusual for septic pulmonary emboli. His transthoracic echocardiogram was negative. He is otherwise healthy. Denies injection drugs, which I tend to believe. Could this be an unusual presentation of an autoimmune pulmonary disorder including Hugh's granulomatosis or sarcoidosis. Other infectious considerations include the causes of culture- negative endocarditis, like bartonellosis or Q fever. 2. Elevated C-reactive protein at 230. 3. Elevated troponin 0.15. 4. Normocytic anemia. 5. Leukocytosis. RECOMMENDATION: Agree with broad-spectrum antibiotics. I will ask the lab to hold the blood cultures a few more days, add serology for Q fever and bartonella. Send an ANCA. Check a transesophageal echocardiogram. HISTORY OF PRESENT ILLNESS: This is a 37-year-old man who is otherwise healthy except for hypertension. He has had 2 weeks of fever, myalgia. It came on kind of suddenly about 2 weeks ago with fevers, chills, sweats, myalgia. His appetite was decreased. He has lost about 10 pounds during that time. He was seen at [facility]. He had a strep swab, PCR that was negative. He has been taking Tylenol. No recent antibiotic use. He developed chest pain worse with deep breath. He had occasional cough, which was nonproductive because of worsening of his symptoms. His fiancee made him come to the hospital. First seen at [facility], he had a chest x-ray done that showed patchy infiltrate of right lung. He was referred to the emergency room. He had CT of the chest, the findings as noted above. He was febrile at 39 degrees yesterday morning and 38.4 this morning. He was started on vancomycin, Zosyn, IV fluids last night. He feels that his appetite is getting better. CRP went from 230 yesterday down to 130 today. Blood cultures are negative 48 hours. Influenza PCR was negative. The urine legionella and pneumococcal antigens are negative. He has not had infection requiring hospitalization in the past. He has had no sick contacts. PAST MEDICAL HISTORY: Hypertension. MEDICATIONS: 1. Tylenol. 2. Heparin subcutaneous injection. 3. Vancomycin 1 g every 6 hours. 4. Zosyn 3.375 g IV every 8 hours. ALLERGIES: SHELLFISH. FAMILY HISTORY: No tuberculosis or recurrent infections. Mom had heart murmur. Dad had hypertension and stroke. SOCIAL HISTORY: Lives in [facility] with his fibethe and 2 children. They have all been healthy. They have cats at home. There is no travel. He is from [place] [facility]. 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 He has never been in skilled nursing, [facility], , or homeless. REVIEW OF SYSTEMS: A 14-point review of systems was negative except as noted above. PHYSICAL EXAM: Vital Signs: Temperature is 37.8, heart rate 70, respiratory rate 20, blood pressure 150/70, O2 sat 92% on room air. In general, he is awake , not in distress. He appears uncomfortable. Neurologic: He is oriented x3, follows all commands, moves all extremities. Cranial nerves II through XII are intact. HEENT: There is no conjunctival hemorrhage. Oropharynx without lesions. Neck is supple without nuchal rigidity. Lymph Nodes: There is no cervical, supraclavicular, inguinal, axillary, or epitrochlear lymphadenopathy. Heart has regular rate and rhythm without murmurs, rubs or gallops. Lungs have scattered rales at left base. There is no wheeze or rhonchi. Abdomen: Soft, nontender, nondistended. There are bowel sounds present. Skin: There is no rash or splinter hemorrhages. Musculoskeletal: There is no spine tenderness to palpation or joint synovitis. LABORATORY DATA: White blood cell count 13 down from 15, hemoglobin was 11.3, platelets 329, MCV 86. Creatinine is 0.9. CRP 128. Please see impressions and recommendations as outlined above which I have discussed with Lizet Mcnally NP. Thank you for asking me to see Mr. Knott in consultation. [id number]/[facility] #: [id number] [facility]
[2017-04-25] MEDS: Vancomycin(*) 1,000 MG in NS 0.9% 250 ML* 250 ML IVPB SCH ×5 (00:20→21:50)
[2017-04-25 05:53] LABS: Hematocrit 36 % (42-52); Hemoglobin 11.9 g/dl (14.0-18.0); Mean Corpuscular HGB Conc 33 g/dl (31-36); Mean Corpuscular Hemoglobin 29 pg (27-31); Mean Corpuscular Volume 86 fL (80-94); Mean Platelet Volume 8 um3 (7.4-10.4); Red Blood Count 4.15 10^6/ul (4.0-5.4); Red Cell Distribution Width 14 % (10.5-15); White Blood Count 11.7 10^3/ul (3.5-10.8)
[2017-04-25 06:11] LABS: BUN/Creatinine Ratio 8.3 (8-20); C Reactive Protein 190.26 mg/L (< 5.00); Calcium 8.6 mg/dL (8.6-10.3); EGFR African American 131.5 (>60); EGFR Non-African American 102.3 (>60); Potassium 3.5 mmol/L (3.5-5.0)
[2017-04-25] MEDS: Heparin VIAL(*) 5000 UNITS/ML VIAL (FIVE THOUSAND) SUBCUT SCH ×3 (06:15→21:52)
[2017-04-25] MEDS ORDERED: Midazolam* 1 MG/ML 5 ML VIAL (5 MG) ONE (09:02)
[2017-04-25] MEDS ORDERED: fentaNYL* 50 MCG/ML 2 ML VIAL (100 MCG VIAL) ONE (09:02)
[2017-04-25] MEDS ORDERED: Flumazenil* 0.1 MG/ML 5 ML MDV ONE (09:03)
[2017-04-25] MEDS ORDERED: Naloxone* 0.4 MG/ML 1 ML VIAL ONE (09:03)
[2017-04-25] MEDS ORDERED: Lidocaine 2% VISCOUS* 15 ML UDC ONE (09:03)
--- NOTE | 2017-04-25 11:53 | TEE ---
Patient: CHANDLER MOON [facility] Rec#: [id number] : 1980 Date: 04/25/2017 Age: 37y Height: 182.88 cm / 72.0 in Weight: 96.16 kg / 211.9 lbs Sex: M BSA: 2.18 Room#: [facility] Type: Inpatient Referring: Lizet Mcnally NP Performing: Ketan Braxton MD Reading: Ketan Braxton MD Sugar Coating Hand: Kenzie Church RDCS Nurse: Sara Simeon CC: Priscila Bonilla MD Transesophageal Echocardiogram Indication: Source of embolism BP: 159/93 HR: 113 Rhythm: Tachycardia Findings History: HTN, pneumonia, SVT, smoker. Technical Comments: The study quality is good. Left Ventricle: Global left ventricular wall motion and contractility are within normal limits. There is normal left ventricular systolic function. The estimated ejection fraction is 60-65%. Left Atrium: The left atrium is mildly dilated. No thrombus is visualized within the left atrium. There is no thrombus visualized in the left atrial appendage. Right Ventricle: The right ventricular cavity size is normal. The right ventricular global systolic function is normal. Right Atrium: The right atrium is mildly dilated. Interatrial septum appears intact without evidence of shunting. The bubble study is negative. A patent foramen ovale is not demonstrated with color Doppler and agitated contrast. Aortic Valve: The aortic valve is trileaflet. The aortic valve leaflets are mildly thickened. There is no evidence of aortic regurgitation. There is no evidence of aortic stenosis. There is no aortic vegetation present. Mitral Valve: The mitral valve leaflets are mildly thickened. There is trace to mild mitral regurgitation. There is no evidence of mitral stenosis. No vegetation is observed on the mitral valve. Tricuspid Valve: The tricuspid valve leaflets are normal. There is trace to mild tricuspid regurgitation. There is no tricuspid stenosis. No vegetation is observed on the tricuspid valve. Pulmonic Valve: The pulmonic valve appears normal. There is a trace pulmonic regurgitation. There is no pulmonic stenosis. No vegetation is observed on the pulmonic valve. Pericardium: There is no significant pericardial effusion. Aorta: There is no dilatation of the ascending aorta. There is mild dilatation of the aortic root. There is plaque visualized in the transverse aorta. There is minimal atherosclerotic plaque in the visualized segments of the aorta. Pulmonary Artery: The main pulmonary artery appears normal. Venous: The bicaval view was obtained and appears normal. The pulmonary veins appear normal. 2 of 4 visualized. The pulmonary veins appear normal in size. RAMIREZ Procedures: All standard views were attempted within the limitations of patient tolerance and safety. History and physical as well as labs were reviewed. The patient was in a fasting state. Risks and benefits of the procedure, including alternatives, were discussed and written informed consent was obtained. The patient and/or their health care disability representative expressed understanding of the procedure, risks and benefits. Baseline and continuous monitoring of blood pressure, heart rate, pulse oximetry and heart rhythm was performed throughout the procedure. The appropriate time-out procedure was performed as per [facility] protocol. The patient was placed in the left lateral decubitus position. The patient's posterior pharynx was anesthetized with 20ml of 2% viscous lidocaine. The patient received IV Midazolam with a total dose of 7 mg. The patient received IV Fentanyl with a total dose of 50 mcg. An oral bite block was inserted for protection of oral dentition. The multiplane transesophageal echocardiogram probe was inserted through the posterior oropharynx and advanced into the esophagus without difficulty. Multiple 2D images were obtained of the heart and its related structures. Color flow Doppler was used for evaluation. Spectral Doppler was also used. The atrial septum was interrogated with color flow Doppler. At the conclusion of the procedure the probe was removed with continuous suction without complications. The patient tolerated the procedure with no apparent complications. Contrast: Normal saline was used as contrast for the bubble study. Image 34. Intravenous contrast was used to help determine presence of intracardiac shunting. Conclusions There is normal left ventricular systolic function. The estimated ejection fraction is 60-65%. There is no thrombus visualized in the left atrial appendage. A patent foramen ovale is not demonstrated with color Doppler and agitated contrast. There is no aortic vegetation present. No vegetation is observed on the mitral valve. There is trace to mild mitral regurgitation. No vegetation is observed on the tricuspid valve. There is trace to mild tricuspid regurgitation. No vegetation is observed on the pulmonic valve. There is no significant pericardial effusion. Measurements Name Value Normal Range Aortic Annulus 2.4 cm (1.4 - 2.6) Ao root diameter (2D) 4 cm (2.1 - 3.5) Ascending Ao 3.3 cm (2.1 - 3.4) Name Value Normal Range MV E-wave Vmax 0.87 m/sec - MV deceleration time 105.6 msec - MV A-wave Vmax 1.11 m/sec - MV E:A ratio 0.78 ratio -
--- NOTE | 2017-04-25 14:09 | PN ---
Subjective Date of Service: 04/25/17 Interval History: Patient seen and examined at bedside. Patient denies pain at this time. Anxiety improved. Patient ambulating without difficulty. Family History: Unchanged from Admission Social History: Unchanged from Admission Past Medical History: Unchanged from Admission Objective Active Medications: Acetaminophen (Tylenol Tab*) 650 mg PO Q6H PRN Heparin Sodium (Porcine) (Heparin Vial(*)) 5,000 units SUBCUT Q8HR FELISHA Piperacillin Sod/Tazobactam (Sod 3.375 gm/ Sodium Chloride) 100 mls @ 25 mls/ hr IVPB Q8H FELISHA Vancomycin HCl 1,000 mg/ (Sodium Chloride) 250 mls @ 166.667 mls/hr IVPB Q6H FELISHA Lorazepam (Ativan Tab(*)) 0.5 mg PO Q6H PRN Morphine Sulfate (Morphine Inj (Syringe)*) 2 mg IV Q2H PRN Oxycodone/Acetaminophen (Percocet 5/325 Tab*) 1 tab PO Q4H PRN Oxycodone/Acetaminophen (Percocet 5/325 Tab*) 2 tab PO Q4H PRN Pharmacy Consult (Vancomycin Per Pharmacy*) 1 note FOLLOW UP . PRN Pharmacy Profile Note (Vancomycin Trough Check) 1 note FOLLOW UP 0600 ONE 04/25/17 04/25/17 11:56 13:15 Temperature 98.7 F 99.3 F Pulse Rate 75 76 Respiratory 24 22 Rate Blood Pressure 150/92 175/88 (mmHg) O2 Sat by Pulse 97 97 Oximetry Oxygen Devices in Use Now: None Appearance: sitting up in bed, NAD Eyes: No Scleral Icterus, PERRLA Ears/Nose/Mouth/Throat: NL Teeth, Lips, Gums Neck: NL Appearance and Movements; NL JVP Respiratory: Symmetrical Chest Expansion and Respiratory Effort Cardiovascular: NL Sounds; No Murmurs; No JVD, RRR Abdominal: NL Sounds; No Tenderness; No Distention Extremities: No Edema Skin: No Rash or Ulcers Neurological: Alert and Oriented x 3, NL Muscle Strength and Tone Lines/Tubes/Other Access: Clean, Dry and Intact Peripheral IV Nutrition: Taking PO's Result Diagrams: 04/25/17 04:18 04/25/17 04:18 Assess/Plan/Problems-Billing Assessment: 37 yo male with no significant PMH presents to the ER on 04/22 with c/o one week of chills (rigors), fever, and chest tightness presenting with fever and SVT HR 150's, found to have a septic emboli - Patient Problems (1) Septic embolism Comment: Etiology unclear. CTA shows small burden of acute pulm emboli of right upper lobe, most consistent with septic embolic disease. Low grade temp this morning and WBCs down. Continue Vanco/Zosyn. Appreciate ID input. HIV and ANCA pending. RAMIREZ negative. Will get CT abd/pel to eval for liver abscess. Plan for PICC and IV Vancimycin at discharge (2 weeks) (2) Hypertension Comment: SBP elevated. Will start low dose norvasc. (3) DVT prophylaxis Comment: Heparin SQ (4) Full code status Status and Disposition: inpatient with septic emboli. LOS > 2 days. Home when stable.
--- NOTE | 2017-04-25 14:55 | RAD ---
INDICATION: Septic emboli. Liver abscess. COMPARISON: CTA chest April 23, 2017 TECHNIQUE: Noncontrast axial source images were obtained from the hemidiaphragms to the symphysis pubis. This examination was ordered without oral or intravenous contrast and therefore has inherent limitations when used to evaluate other intra-abdominal or intrapelvic pathology. Consider conventional contrast enhanced imaging if clinically indicated Lung bases: Multiple lung masses are identified in this patient with suspected septic pulmonary emboli. The lesions appear little changed. There are now moderate-sized bilateral pleural effusions. Liver: The liver is normal in size. Noncontrast imaging shows no evidence of a hepatic mass or ductal dilatation. Gallbladder: There are no calcified gallstones. There is no evidence of wall thickening or pericholecystic fluid.. Spleen: The spleen is normal in size. The noncontrast CT appearance is normal. Pancreas: Noncontrast imaging shows no pancreatic mass or ductal dilitation. Adrenal glands: No masses are identified. Kidneys/Bladder: There is no evidence of nephrolithiasis or CT evidence of hydronephrosis. Noncontrast imaging shows no evidence of a renal mass. The bladder is unremarkable.. Adenopathy: There is no evidence of intraperitoneal or retroperitoneal adenopathy. Evaluation is limited without oral contrast. Fluid collections: There are no free or localized fluid collections. Vessels: The aorta and iliac vessels are normal in caliber. There are no significant atherosclerotic changes. The IVC appears normal Pelvic organs: The uterus and adnexa appear normal GI tract: Evaluation of the bowel is limited without oral contrast. The stomach, small bowel, and lower GI tract appear grossly normal. There are no obstructive findings. Soft tissues: No soft tissue abnormalities of the extraperitoneal abdomen or pelvis are identified. Osseous structures: There are no acute osseous findings. IMPRESSION: LIMITED NONCONTRAST IMAGING WAS PERFORMED REQUESTED AND DOES NOT SHOW CONVINCING EVIDENCE OF A HEPATIC ABSCESS. IF MORE DETAILED EVALUATION OF THE SOLID VISCERA IS REQUIRED, SUGGEST CONVENTIONAL CONTRAST IMAGING AND/OR ULTRASONOGRAPHY . THERE ARE MULTIPLE LUNG MASSES ALSO RECENTLY DESCRIBED ON THE CT OF THE CHEST AND ATTRIBUTED TO SEPTIC PULMONARY EMBOLI. THESE APPEAR LITTLE CHANGED. THERE ARE NEW BILATERAL EFFUSIONS, HOWEVER.
[2017-04-25] MEDS: amLODIPine TAB* 5 MG PO SCH (16:09)
[2017-04-25] MEDS: Acetaminophen TAB* 325 MG PO PRN (18:43)
[2017-04-25] MEDS: oxyCODONE/Acetamin 5/325 MG* TAB PO PRN (20:03)
[2017-04-26] MEDS: Vancomycin(*) 1,000 MG in NS 0.9% 250 ML* 250 ML IVPB SCH ×2 (03:45→11:00)
[2017-04-26] MEDS: Acetaminophen TAB* 325 MG PO PRN (03:50)
[2017-04-26] MEDS: Heparin VIAL(*) 5000 UNITS/ML VIAL (FIVE THOUSAND) SUBCUT SCH (05:30)
[2017-04-26] MEDS ORDERED: Vancomycin Trough Check NOTE FOLLOW UP ONE (08:00)
[2017-04-26 08:19] VITALS: BP 152/88
[2017-04-26 08:43] LABS: Add Diff/Slide Review? Slide Review Added; Comments Flag Yes; Hematocrit 40 % (42-52); Hemoglobin 13.4 g/dl (14.0-18.0); Mean Corpuscular HGB Conc 34 g/dl (31-36); Mean Corpuscular Hemoglobin 29 pg (27-31); Mean Corpuscular Volume 86 fL (80-94); Mean Platelet Volume 8 um3 (7.4-10.4); Red Blood Count 4.61 10^6/ul (4.0-5.4); Red Cell Distribution Width 14 % (10.5-15)
[2017-04-26 09:06] LABS: Target Cells 1+
[2017-04-26 09:07] LABS: Hypochromasia 1+; Polychromasia 1+
[2017-04-26] MEDS: amLODIPine TAB* 5 MG PO SCH (09:54)
--- NOTE | 2017-04-26 11:21 | PN ---
Progress Note - Progress Note Date of Service: 04/26/17 SOAP: Subjective: CC: fever HPI: 37 year old man with fever, chest pain, presumed septic pulmonary emboli on CT scan; fever, chest pain, and malaise are resolved. No rash or diarrhea. Objective: [] Vital Signs Temp 36.7 C 04/26/17 07:19 Pulse 64 04/26/17 07:19 Resp 20 04/26/17 08:00 BP 152/88 04/26/17 07:19 Pulse Ox 98 04/26/17 07:19 Intake & Output 04/25/17 04/26/17 04/26/17 18:59 06:59 18:59 Intake Total 1010 3980 Output Total 675 3050 Balance 335 930 Intake: IV Fluids 20 32 Zosyn 17 vancomycin 20 15 IVPB 270 748 Zosyn 220 vancomycin 270 528 Oral 720 3200 Output: Urine 675 3050 Other: Estimated Void Large # Bowel Movements 0 # Voids 1 2 Gen:awake, no distress HEENT:PERRL, MMM Heart:RRR no murmur Lungs:CTA BL Abd:+BS NTND soft Skin: no rash MSK: no spine tenderness Laboratory Results - last 24 hr 04/24/17 04/24/17 04/26/17 05:07 12:58 08:02 WBC 11.0 H RBC 4.61 Hgb 13.4 L Hct 40 L MCV 86 MCH 29 MCHC 34 RDW 14 Plt Count 546 H D MPV 8 Neut % (Auto) 72.1 Lymph % (Auto) 17.7 L [place] % (Auto) 8.3 Eos % (Auto) 1.5 Baso % (Auto) 0.4 Absolute Neuts (auto) 7.9 H Absolute Lymphs (auto) 1.9 Absolute Monos (auto) 0.9 H Absolute Eos (auto) 0.2 Absolute Basos (auto) 0 Absolute Nucleated RBC 0.02 Nucleated RBC % 0.2 Normal RBC Morphology Not Reportable Polychromasia 1+ Hypochromasia 1+ Target Cells 1+ C-Reactive Protein Vancomycin Trough Proteinase 3 (PR3) < 0.2 Myeloperoxidase Ab < 0.2 HIV 1&2 Antibody Nonreactive 04/26/17 04/26/17 08:02 08:03 WBC RBC Hgb Hct MCV MCH MCHC RDW Plt Count MPV Neut % (Auto) Lymph % (Auto) [place] % (Auto) Eos % (Auto) Baso % (Auto) Absolute Neuts (auto) Absolute Lymphs (auto) Absolute Monos (auto) Absolute Eos (auto) Absolute Basos (auto) Absolute Nucleated RBC Nucleated RBC % Normal RBC Morphology Polychromasia Hypochromasia Target Cells C-Reactive Protein 194.56 H Vancomycin Trough 15.2 Proteinase 3 (PR3) Myeloperoxidase Ab HIV 1&2 Antibody Microbiology 04/24/17 08:01 Blood Venous Aerobic Blood Culture - Preliminary No Growth Day 1 04/24/17 08:01 Blood Venous Anaerobic Blood Culture - Preliminary No Growth Day 1 04/24/17 07:54 Blood Venous Aerobic Blood Culture - Preliminary No Growth Day 1 04/24/17 07:54 Blood Venous Anaerobic Blood Culture - Preliminary No Growth Day 1 04/22/17 11:15 Blood Venous Aerobic Blood Culture - Preliminary No Growth Day 2 04/22/17 11:15 Blood Venous Anaerobic Blood Culture - Preliminary No Growth Day 2 04/22/17 11:15 Blood Venous Blood Culture - Final 04/22/17 11:20 Blood Venous Aerobic Blood Culture - Preliminary No Growth Day 2 04/22/17 11:20 Blood Venous Anaerobic Blood Culture - Preliminary No Growth Day 2 04/22/17 11:20 Blood Venous Blood Culture - Final 04/23/17 13:05 Nasal Influenza Types A,B Antigen (TREY) - Final Specimen received for Influenza A/B Molecular testing 04/22/17 13:10 Urine Legionella Urinary Antigen - Final Negative Legionella 04/22/17 13:10 Urine Streptococcus pneumoniae Ag Screen - Final Negative S. pneumo Antigen Assessment: 1. bilateral peripheral lung nodules and infiltrates, RAMIREZ negative, improving on antibiotics; most likely septic pulm emboli, systemic symptoms improving on antibiotics supports that, despite negative BC Plan: 1. vancomycin goal tr 15-20 day 10/28 with weekly cbc, cmp, crp, vanco trough and follow up CT at the end of treatment Discussed neto Mcnally [employer] 35 miuntes floor time >50% face to face in counseling regarding abx side effects , monitoring, and symptoms of returning infection including fever, chest pain for which he will return to ER.
--- NOTE | 2017-04-26 13:15 | DCNOTE ---
Subjective Date of Service: 04/26/17 Interval History: Patient seen and examined at bedside. Patient feels much better than yesterday and is eager to go home. He denies pain. Eating well and moving bowels without difficulty. Family History: Unchanged from Admission Social History: Unchanged from Admission Past Medical History: Unchanged from Admission Objective Active Medications: Acetaminophen (Tylenol Tab*) 650 mg PO Q6H PRN Amlodipine Besylate (Norvasc Tab*) 5 mg PO DAILY FELISHA Heparin Sodium (Porcine) (Heparin Vial(*)) 5,000 units SUBCUT Q8HR FELISHA Heparin Sodium (Porcine) (Heparin Flush Picc/Ml/Cvc(*)) 0 ml IV FLUSH 0600, 1800 FELISHA Vancomycin HCl 1,000 mg/ (Sodium Chloride) 250 mls @ 166.667 mls/hr IVPB Q6H FELISHA Lorazepam (Ativan Tab(*)) 0.5 mg PO Q6H PRN Morphine Sulfate (Morphine Inj (Syringe)*) 2 mg IV Q2H PRN Oxycodone/Acetaminophen (Percocet 5/325 Tab*) 1 tab PO Q4H PRN Oxycodone/Acetaminophen (Percocet 5/325 Tab*) 2 tab PO Q4H PRN Pharmacy Consult (Vancomycin Per Pharmacy*) 1 note FOLLOW UP . PRN 04/26/17 04/26/17 04/26/17 03:31 07:19 08:00 Temperature 98.8 F 98.0 F Pulse Rate 86 64 Respiratory 16 20 20 Rate Blood Pressure 142/81 152/88 (mmHg) O2 Sat by Pulse 98 98 Oximetry Oxygen Devices in Use Now: None Appearance: sitting up in bed, NAD Eyes: No Scleral Icterus, PERRLA Ears/Nose/Mouth/Throat: NL Teeth, Lips, Gums Neck: NL Appearance and Movements; NL JVP Respiratory: Symmetrical Chest Expansion and Respiratory Effort, Clear to Auscultation Cardiovascular: NL Sounds; No Murmurs; No JVD, RRR Abdominal: NL Sounds; No Tenderness; No Distention Extremities: No Edema Skin: No Rash or Ulcers Neurological: Alert and Oriented x 3, NL Muscle Strength and Tone Lines/Tubes/Other Access: Clean, Dry and Intact Peripheral IV Nutrition: Taking PO's Result Diagrams: 04/26/17 08:02 04/25/17 04:18 Assess/Plan/Problems-Billing 37 yo male with no significant PMH presents to the ER on 04/22 with c/o one week of chills (rigors), fever, and chest tightness presenting with fever and SVT HR 150's, found to have a septic emboli - Patient Problems (1) Septic embolism (2) Hypertension (3) DVT prophylaxis (4) Full code status Status and Disposition: Inpatient with septic emboli. LOS > 2 days. Plan to discharge home on IV Vancomycin for 48 days total. Weekly labs and f/u with Yeny in 1 month.
[2017-04-26 16:59] LABS: Bartonella Henselae IgG <1:128 titer (<1:128); Bartonella Henselae IgM <1:20 titer (<1:20); Bartonella Quintana IgM <1:20 titer (<1:20)
--- NOTE | 2017-04-27 07:44 | DS ---
CC: Dr. Diaz; Dr. Saini* DISCHARGE SUMMARY: DATE OF ADMISSION: 04/22/17 DATE OF DISCHARGE: 04/26/17 PRIMARY CARE PHYSICIAN: Dr. Rima Diaz. CONSULTATIONS WHILE IN THE HOSPITAL: Dr. Leon Saini. ATTENDING PHYSICIAN: Dr. Demetri Bang* (report dictated by Lizet Mcnally NP). PRIMARY DIAGNOSIS: Septic emboli of unknown origin. STUDIES WHILE IN THE HOSPITAL: 1. 04/22/17, bilateral lower extremity Doppler. No evidence of DVT. 2. CT of the chest, 04/23/17, small burden of acute pulmonary emboli at the subsegmental pulmonary arteries of the apical segment of the right upper lobe, with a constellation of multiple pulmonary opacities with some demonstrating early central cavitations most consistent with septic embolic disease. Interval progression of pulmonary infiltrates compared with the April 22 chest radiograph. 3. Transthoracic echocardiogram, 04/23/17, the left ventricular size is mild to moderately dilated. The left ventricle appears hypodynamic. The estimated ejection fraction is 60% to 65%. The right ventricular global systolic function is normal. All valves appear structurally normal. No vegetations noted. There is [id number] mitral regurgitation. There is rnrgd-[id number] tricuspid regurgitation. There is no significant pericardial effusion. The right ventricular systolic pressure is estimated at 32 mmHg. 4. Transesophageal echocardiogram. No thrombus visualized in the left atrial appendage. A patent foramen ovale is not demonstrated due to color Doppler and agitated contrast. There is no aortic vegetation present. No vegetation on the mitral valve, tricuspid valve or pulmonic valve. The estimated ejection fraction is 60% to 65%. 5. CT scan of the abdomen and pelvis without contrast. Limited noncontrast imaging was performed as requested and does not show convincing evidence of a hepatic abscess. A more detailed evaluation of the viscera is required. Suggest conventional contrast imaging and/or ultrasonography. There are multiple lung masses also as also recently described in the CT of the chest and attributed to septic pulmonary emboli. These appear a little changed. There are new bilateral effusions, however. MEDICATIONS AT THE TIME OF DISCHARGE: New Medications: 1. Tylenol 650 mg every 6 hours as needed. 2. Heparin flushes per PICC, per protocol. 3. Vancomycin 1.25 g IV every 8 hours until 05/21/17. 4. Norvasc 5 mg oral daily. HISTORY OF PRESENT ILLNESS AND HOSPITAL COURSE: Mr. Knott is a 37-year-old male with a past medical history of hypertension, who presented to the hospital from [facility] on 04/22/17, with a complaint of high fever, chills. The patient had previously been seen at Urgent Care and treated for flu. When the patient came to the emergency room, the patient was tachycardic, with a temperature of 102. Chest x-ray revealed mild right-sided infiltrate. He had an elevated D-dimer and was unable to go directly for a CTA of the chest. The patient was initially placed on ceftriaxone and Zithromax. For the SVT, it was suspected that the patient possibly had a pulmonary embolism and was treated with full-dose Lovenox until the patient could be premedicated for a scan with contrast. Subsequently, the patient was able to have a CTA of the chest, which revealed findings consistent with septic emboli. Although the patient did not present with a white count, it went up to 15,000. The patient also had an elevated sed rate and a CRP of 190. He was initially treated with ceftriaxone and azithromycin, but transitioned to broader spectrum antibiotics with vancomycin and Zosyn and fluids once CT showed septic emboli. Blood cultures were drawn, which were negative. Urine Legionella and pneumococcal antigens were also negative. The patient was seen in consultation by Dr. Leon Saini from Infectious Disease, please refer to his dictation for detail. The patient had Bartonella test that was negative, HIV that was negative, flu test that was negative. Additionally, he had myeloperoxidase antibody and proteinase that were negative. The patient had a transthoracic echocardiogram negative for any vegetation as well as a transesophageal echocardiogram that was negative for any vegetation. The patient denied injection drug use. This is quite an unusual presentation without any associated bacteremia. Infectious Disease felt this could be an unusual presentation of autoimmune pulmonary disorder such as Hugh's or sarcoidosis or could also be infectious such as culture negative endocarditis. With the antibiotics, the patient's white blood cell count improved and the patient's symptoms improved significantly. The patient was pain free on the day of discharge. Infectious disease recommended 4 weeks of vancomycin for the septic emboli. The patient was set up with home antibiotics. He will have weekly labs including complete metabolic panel, CBC, as well as C- reactive protein, and vanco trough. The patient had a bump in his troponin up to 0.15 as peak and came down to 0.05. He had echo showed no significant abnormalities as I have dictated above. On 04/26/17, the patient was completely pain free. He was tolerating meals and ambulating without difficulty. At this point he was stable for discharge. Vitals are as follows temp 98, HR 64, RR 20, O2 sat 98%, BP 152/88. DISCHARGE PLANNING: The patient was discharged on a regular diet with activity as tolerated. The patient will have home infusion teaching this evening. The patient should continue antibiotics until 05/21/17. The patient will have weekly labs drawn as stated above. The patient has an appointment with Dr. Rima Diaz on 05/04/17 at 9:40 in the morning and should also follow up with Dr. Saini in 1 month. The patient should have a CT scan of his chest in 1 month once he has completed his antibiotics. I have reviewed all the instructions with the patient and his fiancee, they are agreeable with the discharge today. This is a summarized report of a complex medical history and hospital stay. For more details, please see entire medical record. TIME SPENT: Time for discharge was 60 minutes and 35 minutes were spent with the patient discussing medication at discharge and followup instructions. CONDITION ON DISCHARGE: Stable. Reviewed by LIZET MCNALLY NP 04/29/20171999 [id number]/[facility] #: [id number] [place]
[2017-04-29 16:01] LABS: Coxsackie Virus Type A(10) Ab <1:8; Coxsackie Virus Type A(16) Ab <1:8; Coxsackie Virus Type A(2) Ab <1:8; Coxsackie Virus Type A(4) Ab <1:8; Coxsackie Virus Type A(7) Ab <1:8; Coxsackie Virus Type A(9) AB <1:8
[2017-04-29 16:07] LABS: Coxsackie Virus Type B(2) Ab 1:16; Coxsackie Virus Type B(3) Ab <1:8; Coxsackie Virus Type B(4) Ab <1:8; Coxsackie Virus Type B(5) Ab <1:8
== END 2017-04-26 14:16 | disposition home or self-care (01) | DRG 134 ==
LOC: ED 09:41 → MEDTELE 12:33
PROVIDERS: ADMIT Internal Medicine; ATTEND Internal Medicine
PROC: B24BZZ4 Ultrasonography of Heart with Aorta, Transesophageal (ICD-10-PCS; principal; 2017-04-25 09:00)
PROC: 02HV33Z Insertion of Infusion Device into Superior Vena Cava, Percutaneous Approach (ICD-10-PCS; 2017-04-26)
DX: I26.90 Septic pulmonary embolism without acute cor pulmonale (principal); J90 Pleural effusion, not elsewhere classified; E86.0 Dehydration; E87.1 Hypo-osmolality and hyponatremia; I08.1 Rheumatic disorders of both mitral and tricuspid valves; I47.1 Supraventricular tachycardia; I10 Essential (primary) hypertension; F17.210 Nicotine dependence, cigarettes, uncomplicated; E87.6 Hypokalemia; F12.90 Cannabis use, unspecified, uncomplicated; R91.8 Other nonspecific abnormal finding of lung field; F41.9 Anxiety disorder, unspecified; F43.10 Post-traumatic stress disorder, unspecified; R74.8 Abnormal levels of other serum enzymes; D64.9 Anemia, unspecified; Z91.013 Allergy to seafood; Z82.3 Family history of stroke; Z82.49 Family history of ischemic heart disease and other diseases of the circulatory system; Z72.89 Other problems related to lifestyle
CPT/HCPCS: 36415; 36600; 71020; 71275; 74176; 80048; 80053; 80202; 81003; 82553; 82803; 83036; 83516; 83605; 83735; 83880; 84443; 84484; 85025; 85379; 85652; 86140; 86611; 86658; 86703; 87040; 87502; 87899; 93005; 93306; 93312; 93325; 93970; 99156; 99157; 99213; A9270-GY; C1751; G0463; J0456; J0692; J0696; J1170; J1644; J1650; J2060; J2250; J2270; J2310; J2543; J3010; J3370; J7512; Q9967

== ENCOUNTER 2022-12-29 13:14 | Inpatient (IN) ==
[2022-12-29 13:40] LABS: ABS Lymphocytes 1.3 10^3/uL (1.0-4.8); ABS Monocytes 0.9 10^3/uL (0.0-1.1); ABS Nucleated RBC 0.01 10^3/ul; Eosinophil % 0.3 %; Hemoglobin 15.4 g/dL (13.2-16.3); Lymphocyte % 13.9 %; Mean Corpuscular Hemoglobin 29.2 pg (27-33); Mean Corpuscular Hgb Conc 33.4 g/dL (31-36); Mean Corpuscular Volume 87.3 fL (80-97); Mean Platelet Volume 8.8 fL (7.5-11.2); Nucleated Red Blood Cells % 0.1 /100 WBC (0.0-0.4); Platelet Count 198 10^3/uL (150-450); Red Blood Count 5.27 10^6/uL (4.06-5.63); Red Cell Distribution Width 14.2 % (12-17); White Blood Count 9.2 10^3/uL (3.6-10.2)
[2022-12-29 13:54] LABS: INR 1.42 (0.88-1.18)
[2022-12-29 13:56] LABS: Albumin 4.2 g/dL (3.2-5.2); Albumin/Globulin Ratio 1.1 (1-3); Calcium 9.4 mg/dL (8.6-10.3); Creatinine, Serum 1.24 mg/dL (0.67-1.17); Globulin 3.9 g/dL (2-4); Potassium 3.7 mmol/L (3.5-5.0); Total Protein 8.1 g/dL (6.4-8.9)
[2022-12-29] MEDS ORDERED: Lactated Ringers 1000 ml BAG 1,000 ML IV ONE ×2 (15:04→17:18)
[2022-12-29] MEDS ORDERED: Adenosine 3 MG/ML 2 ml VIAL (6 mg) IV PUSH ONE ×2 (15:10→16:24)
[2022-12-29 15:28] LABS: High Sensitivity Troponin 1 Hr 108 pg/mL (<20)
[2022-12-29] MEDS ORDERED: Iohexol 350 (CONTRAST) 500 ML MDV IV ONE (15:38)
[2022-12-29] MEDS ORDERED: Azithromycin 500 mg/250 ml NS 500 MG/250 ML BAG IVPB ONE (16:06)
[2022-12-29] MEDS ORDERED: cefTRIAXone 1 gm/50 mL D5W 1 GM/50 ML BAG IV ONE (16:06)
[2022-12-29] MEDS ORDERED: Adenosine 3 MG/ML 2 ml VIAL (6 mg) ONE (16:17)
[2022-12-29 16:42] LABS: Urine Appearance Clear; Urine Bilirubin Negative (Negative); Urine Blood 1+ (Negative); Urine Color Straw; Urine Glucose Negative (Negative); Urine Ketones Negative (Negative); Urine Nitrite Negative (Negative); Urine Protein Negative (Negative); Urine Urobilinogen Negative (Negative)
[2022-12-29 16:46] LABS: Urine Bacteria Absent (Absent); Urine Red Blood Cell Trace(0-2/hpf) (Absent); Urine White Blood Cell Trace(0-5/hpf) (Absent)
[2022-12-29 17:38] LABS: C Reactive Protein 232.14 mg/L (<8.01)
[2022-12-30 06:47] LABS: Hematocrit 39.6 % (38-53); Hemoglobin 13.4 g/dL (13.2-16.3); Mean Corpuscular Hemoglobin 29.1 pg (27-33); Mean Corpuscular Volume 85.8 fL (80-97); Mean Platelet Volume 8.8 fL (7.5-11.2); Platelet Count 195 10^3/uL (150-450); Red Blood Count 4.62 10^6/uL (4.06-5.63); Red Cell Distribution Width 14.1 % (12-17); White Blood Count 6.6 10^3/uL (3.6-10.2)
[2022-12-30 06:51] LABS: Calcium 8.8 mg/dL (8.6-10.3); Creatinine, Serum 1.09 mg/dL (0.67-1.17); Potassium 3.6 mmol/L (3.5-5.0); eGFR CKD-EPI 86.4 (>60)
[2022-12-30] MEDS: Enoxaparin 40 MG/0.4 ML SYR SUBCUT SCH (08:14)
[2022-12-30 08:37] LABS: Albumin 3.7 g/dL (3.2-5.2); Direct Bilirubin 0.4 mg/dL (0.03-0.18); Globulin 3.6 g/dL (2-4); Indirect Bilirubin 0.4 mg/dL (0.3-1.0); Total Bilirubin 0.8 mg/dL (0.2-1.0); Total Protein 7.3 g/dL (6.4-8.9)
[2022-12-30] MEDS: cefTRIAXone 1 gm/50 mL D5W 1 GM/50 ML BAG IV SCH (17:44)
[2022-12-30] MEDS: Azithromycin 500 mg/250 ml NS 500 MG/250 ML BAG IVPB SCH (18:25)
[2022-12-31] MEDS: Enoxaparin 40 MG/0.4 ML SYR SUBCUT SCH (09:01)
[2022-12-31] MEDS: cefTRIAXone 1 gm/50 mL D5W 1 GM/50 ML BAG IV SCH (16:15)
[2022-12-31] MEDS: Azithromycin 500 mg/250 ml NS 500 MG/250 ML BAG IVPB SCH (16:55)
[2022-12-31] MEDS ORDERED: Ondansetron 4 mg VIAL 2 MG/ML 2 ml VIAL IV ONE (17:18)
[2022-12-31 18:46] VITALS: BP 162/105
== END 2022-12-31 18:15 | disposition home or self-care (01) | DRG 720 ==
LOC: ED 13:14 → EDHOLD 13:14 → SUATTDRO 17:00 → EDHOLD 18:05 → MEDTELE 20:53
PROVIDERS: ADMIT Internal Medicine; ATTEND Hospitalist